=== PATIENT | female | born 1990 | race African-American/Black ===

== ENCOUNTER 2016-10-17 08:38 | Emergency (ER) | payer MEDICAID, OTHER ==
[~2016-10-17] VITALS: Ht 165.1 cm; Wt 72.5 kg
[~2016-10-17 08:38] MED LIST: DIPH25CA61 PO
[2016-10-17 08:40] VITALS: BP 124/86
[2016-10-17] MEDS ORDERED: CLOB15CR19 TD (09:11)
[2016-10-17] MEDS ORDERED: LIDO20VI TD (09:11)
[2016-10-17] MEDS ORDERED: HYDR100C2 PO (09:11)
[2016-10-17] MEDS ORDERED: NYST15CR2 TD (09:11)
[2016-10-17 09:49] LABS: BLOOD UREA NITROGEN 9 mg/dL (7-18)
[2016-10-17] MEDS ORDERED: HYDROcodone/APAP 5/325 TABLET ONE (10:02)
[2016-10-17 10:24] LABS: DIFF TOTAL CELLS COUNTED 100 CELL DIFF
[2016-10-17 10:28] LABS: ANISOCYTOSIS 2+; HYPOCHROMIA 2+; MICROCYTOSIS 1+; VERIFY COUNTS? YES
[2016-10-17 10:30] LABS: OVALOCYTES 1+
[2016-10-17] MEDS ORDERED: HYDROcodone/APAP 5/325 TABLET PO ONE (10:30)
== END 2016-10-17 11:15 | disposition home or self-care (01) ==
LOC: ED 09:03
DX: N76.0 Acute vaginitis (principal)
CPT/HCPCS: 36415; 80048; 81001; 82040; 85025; 87086; 87210; 87252; 87491; 87591; 87808; 99284

== ENCOUNTER 2017-05-14 12:04 | Emergency (ER) | payer BC, MEDICAID, OTHER ==
[~2017-05-14] VITALS: Ht 160 cm; Wt 73.0 kg
[~2017-05-14 12:04] MED LIST changes: +CLOB15CR19 TD; +HYDR100C2 PO; +LIDO20VI TD; +NYST15CR2 TD
[2017-05-14 12:13] VITALS: BP 131/74
== END 2017-05-14 15:19 | disposition home or self-care (01) ==
LOC: ED 15:13
DX: M77.9 Enthesopathy, unspecified (principal)
CPT/HCPCS: 29260; 99284

== ENCOUNTER 2020-06-16 10:08 | Outpatient (CLI) | payer MEDICAID ==
[~2020-06-16] VITALS: Ht 160 cm; Wt 95.0 kg
== END 2020-06-16 10:55 | disposition home or self-care (01) ==
LOC: LDOP 10:08
PROVIDERS: ATTEND Obstetrics & Gynecology
DX: Z34.93 Encounter for supervision of normal pregnancy, unspecified, third trimester (principal); Z3A.38 38 weeks gestation of pregnancy
CPT/HCPCS: 59025

== ENCOUNTER 2020-06-24 09:21 | Inpatient (IN) | payer MEDICAID ==
[~2020-06-24] VITALS: Ht 160 cm; Wt 95.4 kg
[2020-06-24] MEDS: LACTATED RINGERS 1,000 ML IV SCH (23:35)
[2020-06-25] MEDS ORDERED: NEWBORN KIT ONE (08:29)
[2020-06-25] MEDS ORDERED: CALCIUM CARBONATE 500 MG TAB.CHEW PO PRN (08:30)
[2020-06-25] MEDS ORDERED: MISOPROSTOL 200 MCG TABLET ONE (08:30)
[2020-06-25] MEDS ORDERED: OXYTOCIN 30U/ 0.9% NaCL 500ML 500 ML ONE (08:30)
[2020-06-25] MEDS ORDERED: OXYTOCIN 30U/ 0.9% NaCL 500ML 500 ML IV PRN (08:30)
[2020-06-25] MEDS ORDERED: OXYTOCIN 30U/ 0.9% NaCL 500ML 500 ML IV ONE (08:30)
[2020-06-25] MEDS ORDERED: FENTANYL PF 100 MCG/2ML IV PRN (08:30)
[2020-06-25] MEDS ORDERED: TERBUTALINE 1 MG/ML, 1ML SQ PRN (08:30)
[2020-06-25] MEDS ORDERED: METOCLOPRAMIDE 5 MG/ML, 2ML IVPush PRN (08:30)
[2020-06-25] MEDS ORDERED: TERBUTALINE 1 MG/ML, 1ML IVPush PRN (08:30)
[2020-06-25] MEDS ORDERED: ONDANSETRON 2MG/ML, 2ML IVPush PRN (08:30)
[2020-06-25] MEDS ORDERED: FENTANYL PF 100 MCG/2ML IVPush PRN (08:30)
[2020-06-25] MEDS ORDERED: SODIUM CITRATE/CITRIC ACID 30 ML UDC PO PRN (08:30)
[2020-06-25 08:48] LABS: BASOPHILS % (AUTO) 1 % (0-1); EOSINOPHILS % (AUTO) 1 % (1-7); LYMPHOCYTES % (AUTO) 21 % (22-44); MEAN CORPUSCULAR HEMOGLOBIN 24.5 pg (27.0-34.8); MEAN CORPUSCULAR HGB CONC 31.4 g/dL (32.4-35.8); MEAN PLATELET VOLUME 7.5 fL (7.4-10.4); MONOCYTES % (AUTO) 7 % (2-9); NEUTROPHILS % (AUTO) 71 % (42-75); PLATELET COUNT 268 x10^3/uL (130-400); RED BLOOD COUNT 4.76 x10^6/uL (3.82-5.3); RED CELL DISTRIBUTION WIDTH 21.9 % (9.6-15.2)
[2020-06-25 08:55] LABS: MD NO
[2020-06-25] MEDS ORDERED: D5%-LACTATED RINGERS 1,000 ML IV SCH (09:00)
[2020-06-25] MEDS ORDERED: LACTATED RINGERS 1,000 ML IV SCH ×2 (10:00→20:00)
[2020-06-25] MEDS ORDERED: BUPIVACAINE 0.25% ONE (17:49)
[2020-06-25] MEDS ORDERED: FENTANYL/BUPIV./NS/PF 250 ML EPIDCONT ONE (17:49)
[2020-06-25] MEDS ORDERED: SODIUM CITRATE/CITRIC ACID 15 ML UDC ONE (19:40)
[2020-06-25] MEDS ORDERED: LACTATED RINGERS 1,000 ML IVBOLUS PRN (20:00)
[2020-06-25] MEDS ORDERED: EPHEDRINE 50 MG/ML, 1ML IVPush PRN (20:00)
[2020-06-25] MEDS ORDERED: AZITHROMYCIN 500 MG in SODIUM CHLORIDE 0.9% 250 ML IV ONE (20:00)
[2020-06-25] MEDS ORDERED: FENTANYL/BUPIV./NS/PF 250 ML EPIDCONT SCH (20:00)
[2020-06-25] MEDS ORDERED: CEFAZOLIN 1,000 MG ONE (20:02)
[2020-06-25] MEDS ORDERED: FENTANYL PF 100 MCG/2ML ONE (20:02)
[2020-06-25] MEDS ORDERED: HYDROmorphone 2 MG/ML, 1ML ONE (20:02)
[2020-06-25] MEDS ORDERED: ONDANSETRON 2MG/ML, 2ML ONE (20:02)
[2020-06-25] MEDS ORDERED: OXYTOCIN 10 UNITS/ML, 1ML ONE (20:02)
[2020-06-25] MEDS ORDERED: KETOROLAC 30 MG/1 ML ONE (20:05)
[2020-06-25] MEDS: KETOROLAC 30 MG/1 ML IV SCH (20:45)
[2020-06-25] MEDS ORDERED: ONDANSETRON 2MG/ML, 2ML IV PRN (21:30)
[2020-06-25] MEDS ORDERED: CARBOPROST TROMETHAMINE 250 MCG/ML, 1ML IM PRN (21:30)
[2020-06-25] MEDS ORDERED: ACETAMINOPHEN 325 MG TABLET PO PRN (21:30)
[2020-06-25] MEDS ORDERED: MISOPROSTOL 200 MCG TABLET PR PRN (21:30)
[2020-06-25] MEDS ORDERED: MEPERIDINE/PF 50 MG/ML IM PRN (21:30)
[2020-06-25] MEDS ORDERED: OXYcodone 5 MG/5 ML ORAL.SOL UDC ONE (22:25)
[2020-06-25] MEDS: OXYcodone IR 5MG TABLET PO PRN (22:30)
[2020-06-25] MEDS ORDERED: OXYcodone 5 MG/5 ML ORAL.SOL UDC PO PRN (22:30)
[2020-06-25 23:35] VITALS: BP 115/73
[2020-06-25] MEDS: LACTATED RINGERS 1,000 ML IV SCH (23:35)
[2020-06-25] MEDS: OXYTOCIN 30U/ 0.9% NaCL 500ML 500 ML IV SCH (23:35)
[2020-06-26] MEDS: ACETAMINOPHEN 325 MG TABLET PO PRN ×3 (02:49→11:33)
[2020-06-26] MEDS: OXYcodone IR 5MG TABLET PO PRN ×5 (02:50→19:55)
[2020-06-26] MEDS: KETOROLAC 30 MG/1 ML IV SCH ×4 (03:15→21:31)
[2020-06-26 05:00] VITALS: BP 108/71
[2020-06-26 05:15] LABS: BASOPHILS % (AUTO) 1 % (0-1); EOSINOPHILS % (AUTO) 0 % (1-7); LYMPHOCYTES % (AUTO) 16 % (22-44); MEAN CORPUSCULAR HGB CONC 31.8 g/dL (32.4-35.8); MONOCYTES % (AUTO) 6 % (2-9); NEUTROPHILS % (AUTO) 78 % (42-75); PLATELET COUNT 231 x10^3/uL (130-400); RED BLOOD COUNT 3.71 x10^6/uL (3.82-5.3)
[2020-06-26 05:20] LABS: MD NO
[2020-06-26] MEDS: LACTATED RINGERS 1,000 ML IV SCH ×5 (05:30→21:30)
[2020-06-26] MEDS: OXYTOCIN 30U/ 0.9% NaCL 500ML 500 ML IV SCH ×2 (07:30→17:30)
[2020-06-26 08:10] VITALS: BP 99/65
[2020-06-26] MEDS: PRENATAL VIT/IRON/FA 1 EACH TABLET PO SCH (09:00)
[2020-06-26 12:00] VITALS: BP 119/70
[2020-06-26 16:25] VITALS: BP 95/60
[2020-06-26 19:40] VITALS: BP 114/69
[2020-06-26] MEDS: DOCUSATE 100 MG CAPSULE PO PRN (19:54)
[2020-06-26] MEDS: FERROUS SULFATE 325 MG TABLET PO SCH (19:54)
[2020-06-26] MEDS: SIMETHICONE 80 MG CHEW TAB PO PRN (21:38)
[2020-06-27] MEDS: ACETAMINOPHEN 325 MG TABLET PO PRN ×2 (00:40→09:14)
[2020-06-27] MEDS: SIMETHICONE 80 MG CHEW TAB PO PRN ×2 (00:40→09:20)
[2020-06-27] MEDS: OXYcodone IR 5MG TABLET PO PRN ×3 (00:41→09:20)
[2020-06-27] MEDS: OXYTOCIN 30U/ 0.9% NaCL 500ML 500 ML IV SCH ×2 (03:30→13:30)
[2020-06-27] MEDS: LACTATED RINGERS 1,000 ML IV SCH ×4 (03:30→13:30)
[2020-06-27] MEDS: KETOROLAC 30 MG/1 ML IV SCH ×3 (03:54→15:30)
[2020-06-27 07:41] VITALS: BP 111/72
[2020-06-27] MEDS: FERROUS SULFATE 325 MG TABLET PO SCH (09:20)
[2020-06-27] MEDS: PRENATAL VIT/IRON/FA 1 EACH TABLET PO SCH (09:20)
[2020-06-27] MEDS: DOCUSATE 100 MG CAPSULE PO PRN (09:20)
[2020-06-27] MEDS: OXYcodone/APAP 5/325MG TABLET PO PRN ×2 (13:26→17:28)
[2020-06-27] MEDS ORDERED: IBUPROFEN 600 MG TABLET ONE (16:26)
[2020-06-27] MEDS ORDERED: PREN1TAB60 PO (16:33)
[2020-06-27] MEDS ORDERED: OXYC1TAB14 PO (16:35)
[2020-06-27] MEDS ORDERED: DOCU-131 PO (16:36)
[2020-06-27] MEDS ORDERED: FERR324T5 PO (16:37)
[2020-06-27] MEDS ORDERED: DIPH,PERTUSS(ACELL),TET VAC/PF NC IM-VACC ONE ×2 (16:57→17:00)
== END 2020-06-27 18:00 | disposition home or self-care (01) | DRG 788 ==
LOC: LDIP 06-25 08:15 → 2NW 06-25 23:08
PROVIDERS: ADMIT Obstetrics & Gynecology; ATTEND Obstetrics & Gynecology
PROC: 10D00Z1 Extraction of Products of Conception, Low, Open Approach (ICD-10-PCS; principal; 2020-06-25)
DX: O77.0 Labor and delivery complicated by meconium in amniotic fluid (principal); O16.4 Unspecified maternal hypertension, complicating childbirth; Z37.0 Single live birth; O99.214 Obesity complicating childbirth; E66.9 Obesity, unspecified; O69.81X0 Labor and delivery complicated by cord around neck, without compression, not applicable or unspecified; Z20.822 Contact with and (suspected) exposure to COVID-19; O76 Abnormality in fetal heart rate and rhythm complicating labor and delivery; Z3A.40 40 weeks gestation of pregnancy
CPT/HCPCS: 36415; J7121; 85025; 86592; 86850; 86900; 87635; 90715; G0378; J0456; J0690; J1170; J1885; J2405; J3010; J2590; J2765; J7050